=== PATIENT | male | born 1985 | race American Indian/Alaskan Native ===

== ENCOUNTER 2016-12-07 10:25 | Emergency (ER) | payer SELFPAY ==
[2016-12-07 10:50] VITALS: BP 118/77
--- NOTE | 2016-12-07 16:12 | Emergency Department Report ---
Abscess Boil HPI - HPI Chief Complaint: Skin/Abscess/Foreign Body Stated Complaint: ABCESS X 2 Time Seen by Provider: 12/07/16 15:48 Duration: 3 Days Location: Lower Extremity Severity: Moderate History: Yes Pain, Yes Purulent Drainage, No Fever, No Numbness, No Foreign Body , No Previous History, No Insect Bite HPI: Patient is a 31-year-old male presents to ED complaining of 2 raised lesions on his left lateral thigh 2 days. Patient states it has gotten bigger in the past 2 days and gotten more painful. Patient states earlier today he noticed some discharge coming out of both lungs. Patient states he is not sure if he was bit and but has noticed some spiders around his house past week, He denies fever, nausea/vomiting/abdominal pain. Home Medications: Previous Rx's Medication Instructions Recorded Last Taken Type Acetaminophen/Codeine [Tylenol 1 tab PO Q6H PRN #8 tab 12/07/16 Unknown Rx /Codeine # 3 tab] Cephalexin [Keflex] 500 mg PO BID #10 capsule 12/07/16 Unknown Rx Ibuprofen [Motrin] 800 mg PO Q8HR PRN #24 tablet 12/07/16 Unknown Rx Allergies/Adverse Reactions: Allergies Allergy/AdvReac Type Severity Reaction Status Date / Time No Known Allergies Allergy Unverified 12/07/16 10:50 ED Review of Systems ROS: Stated complaint: ABCESS X 2 Other details as noted in HPI Constitutional: denies: chills, fever Eyes: denies: eye pain, eye discharge, vision change ENT: denies: ear pain, throat pain Respiratory: denies: cough, shortness of breath, wheezing Cardiovascular: denies: chest pain, palpitations Endocrine: no symptoms reported Gastrointestinal: denies: abdominal pain, nausea, vomiting, diarrhea Genitourinary: denies: urgency, dysuria Musculoskeletal: denies: back pain, joint swelling, arthralgia Skin: denies: rash, lesions Neurological: denies: headache, weakness, paresthesias Psychiatric: denies: anxiety, depression Hematological/Lymphatic: denies: easy bleeding, easy bruising ED Past Medical Hx - Past Medical History Previous Medical History?: No - Surgical History Past Surgical History?: No - Social History Smoking Status: Former Smoker Substance Use Type: Alcohol - Medications Home Medications: Home Medications Medication Instructions Recorded Confirmed Last Taken Type Acetaminophen/Codeine [Tylenol 1 tab PO Q6H PRN #8 tab 12/07/16 Unknown Rx /Codeine # 3 tab] Cephalexin [Keflex] 500 mg PO BID #10 capsule 12/07/16 Unknown Rx Ibuprofen [Motrin] 800 mg PO Q8HR PRN #24 tablet 12/07/16 Unknown Rx ED Abscess Boil Physical Exam - Exam General: Vital signs noted. No distress. Alert and acting appropriately. Front/Back of Body, Lg (Color): 1 - 2 seperate cellulitis surrouunded pus drainage lesions. one measuring about 6-8cm. the other 3 cm Size: >5 cm Exam: Yes Tenderness, Yes Fluctuance, Yes Surrounding Cellulites/Erythema, No Lymphangitis, No Crepitation, No Heart Murmur, No Normal Neurologic Exam, No Normal Circulation I & D Note - I & D Note I & D Note: Patient positioned appropriately, 10cc lidocaine without epinephrine was used as a local anesthetic. #11 blade scalpal used for single incision. Additional local anesthetic injected into surrounding viable tissue prior to blunt dissection of loculated adhesions. Copius drainage of pus. Wound packed with iodoform gauze. Procedure tolerated without complications. Wound dressed with sterile 4x4 guaze and paper tape. Pt tolerated procedure well. ED Course Vital Signs 12/07/16 12/07/16 10:43 16:03 Temperature 98.4 F Pulse Rate 74 Respiratory 16 16 Rate Blood Pressure 118/77 O2 Sat by Pulse 100 Oximetry Critical care attestation.: If time is entered above; I have spent that time in minutes in the direct care of this critically ill patient, excluding procedure time. ED Medical Decision Making - Medical Decision Making 31-year-old male presents with cellulitis ED course: Patient received Benadryl and Motrin ED. She tolerated abscess incision and drainage well. Discussed the patient to follow-up in 3 days for wound check Discussed to take antibiotics as prescribed. Discussed patient up to get he is leg went to keep wound dry This is a normal patient is in no acute distress. Patient had uneventful ED stay. ED Disposition Clinical Impression: Abscess of left lower extremity excluding foot Cellulitis Qualifiers: Site of cellulitis: extremity Site of cellulitis of extremity: lower extremity Laterality: left Qualified Code(s): L03.116 - Cellulitis of left lower limb Insect bite Qualifiers: Encounter type: initial encounter Qualified Code(s): W57.XXXA - Bitten or stung by nonvenomous insect and other nonvenomous arthropods, initial encounter Disposition: TO HOME OR SELFCARE Is pt being admited?: No Does the pt Need Aspirin: No Condition: Stable Instructions: Insect Bite or Sting (ED), Abscess Incision and Drainage (ED), Abscess (ED) Additional Instructions: Return to the ED for wound check in 3 Days Follow-up with her primary care physician. If any worsening symptoms such as ED. Prescriptions: Acetaminophen/Codeine [Tylenol /Codeine # 3 tab] 1 tab PO Q6H PRN #8 tab PRN Reason: Pain Cephalexin [Keflex] 500 mg PO BID #10 capsule Ibuprofen [Motrin] 800 mg PO Q8HR PRN #24 tablet PRN Reason: Pain Referrals: PRIMARY CARE,MD [Primary Care Provider] - 3-5 Days Forms: Accompanied Note, Work/School Release Form(ED) Time of Disposition: 16:56
[2016-12-07] MEDS ORDERED: BENADRYL PO ONE (16:33)
[2016-12-07] MEDS ORDERED: MOTRIN PO ONE (16:33)
[2016-12-07] MEDS ORDERED: XYLOCAINE 1% 20 mL INFILTRATI NR (16:45)
== END 2016-12-07 17:56 | disposition home or self-care (01) ==
LOC: ED 10:25
DX: L02.416 Cutaneous abscess of left lower limb (principal); L03.116 Cellulitis of left lower limb; T14.8 Other injury of unspecified body region; Z87.891 Personal history of nicotine dependence; W57.XXXA Bitten or stung by nonvenomous insect and other nonvenomous arthropods, initial encounter; Y93.89 Activity, other specified; Y92.89 Other specified places as the place of occurrence of the external cause; Y99.8 Other external cause status
CPT/HCPCS: 99282

== ENCOUNTER 2016-12-12 12:37 | Emergency (ER) | payer SELFPAY ==
[2016-12-12] MEDS ORDERED: TRIPLE ANTIBIOTIC TP ONE (15:28)
--- NOTE | 2016-12-12 15:38 | Emergency Department Report ---
Suture/Staple Removal - [facility] Chief Complaint: Medical Clearance Stated Complaint: FOLLOW UP Time Seen by Provider: 12/12/16 15:03 When Sutures or [place] Placed: 5-7 Days Ago Wound Location: L thigh, medial and lateral ED Review of Systems ROS: Stated complaint: FOLLOW UP Other details as noted in HPI Comment: All other systems reviewed and negative Constitutional: denies: chills, fever Gastrointestinal: denies: nausea, vomiting Musculoskeletal: other (leg pain decreased, lateral site still ttp ) Skin: other (insect bite to left thigh). denies: change in color ED Past Medical Hx - Past Medical History Previous Medical History?: No - Surgical History Past Surgical History?: No - Social History Smoking Status: Never Smoker Substance Use Type: None - Medications Home Medications: Home Medications Medication Instructions Recorded Confirmed Last Taken Type Acetaminophen/Codeine [Tylenol 1 tab PO Q6H PRN #8 tab 12/07/16 Unknown Rx /Codeine # 3 tab] Ibuprofen [Motrin] 800 mg PO Q8HR PRN #24 tablet 12/07/16 Unknown Rx Sulfamethoxazole/Trimethoprim 1 tab PO BID #20 tab 12/12/16 Unknown Rx [Bactrim 400-80 mg] Suture Removal Exam - Exam General: Vital signs noted. No distress. Alert and acting appropriately. Wound: Yes Tenderness (lateral thigh I and D site ), Yes Drainage, Yes Pus, No Pathologic Erythema Other Systems: All other systems reviewed and are unremarkable. PT with two I and D sites to Left thigh. medial site not ttp, no drainage noted. ED Course Vital Signs 12/12/16 13:02 Temperature 98.4 F Pulse Rate 58 L Respiratory 18 Rate Blood Pressure 103/62 O2 Sat by Pulse 100 Oximetry - Reevaluation(s) Reevaluation #1: 12/12/16 15:36 PT tolerated packing removal. sites flushed with ns and surrounding skin cleansed. - Pulse Oximetry Interpretation Digit-Finger Initial Pulse Oximetry Readin Actions Taken: none ED Recheck MDM - Differential Diagnosis Wound Recheck, Cellultitis Recheck, Cutananeous Abscess reche Critical Care Time: No Critical care attestation.: If time is entered above; I have spent that time in minutes in the direct care of this critically ill patient, excluding procedure time. ED Disposition Clinical Impression: Encounter for abscess packing removal Disposition: DC-01 TO HOME OR SELFCARE Is pt being admited?: No Does the pt Need Aspirin: No Condition: Stable Instructions: Methicillin Resistant Staphylococcus Aureus (ED), Abscess (ED) Additional Instructions: Wash your wounds twice a day with mild soap You can apply otc antibiotic ointment cover with non stick gauze Take antibiotics as prescribed Return to the ED if you notice redness, swelling, fevers or chills Other stubbs follow up with PCP Prescriptions: Sulfamethoxazole/Trimethoprim [Bactrim 400-80 mg] 1 tab PO BID #20 tab Referrals: PRIMARY CAREMD [Primary Care Provider] - 3-5 Days ZHEN NEW MD [Staff Physician] - 3-5 Days [facility] [Outside] - 3-5 Days Time of Disposition: 15:41
[2016-12-12 15:49] VITALS: BP 91/67
== END 2016-12-12 15:55 | disposition home or self-care (01) ==
LOC: ED 12:37
DX: Z48.01 Encounter for change or removal of surgical wound dressing (principal)
CPT/HCPCS: 99282; A6250